=== PATIENT | male | born 1940 | race Caucasian/White ===

== ENCOUNTER → 2020-08-16 14:08 | Outpatient (BNVA) | payer MEDICARE, SELFPAY | PROVIDERS: Family Provider Family Medicine; PCP Family Medicine; Visit Provider Urology | DX: N40.1 Benign prostatic hyperplasia with lower urinary tract symptoms (principal); N39.41 Urge incontinence | CPT/HCPCS: 81003 ==

== ENCOUNTER 2021-02-08 22:51 | Observation (INO) | payer MEDICARE, SELFPAY ==
--- NOTE | 2021-02-08 23:00 | PM.HP ---
Providers/Chief Complaint Admitting Physician: Wei Mccann MD Primary Care Provider: Ravi Castro Chief Complaint: Sick Sinus Syndrome History of Present Illness Beau Peters is a 80 year old male with PMHx of Parkinson's disease, gastroesophageal reflux disease, bipolar disorder, dyslipidemia, anemia, bradycardia was evaluated in April of last year for similar complaints presented today from [facility] with chief complaint of dizziness. Patient is stating that for last few weeks he has been struggling with his gait, which he is describing as difficulty initiating gait and feeling dizzy with exertion such as walking on a steep road. He has not experienced any chest pain, shortness of breath, orthopnea, PND, diaphoresis however endorsing dry heaves. Because of worsening of his symptoms he decided to go to the [facility], where his CBC and BMP work-up was normal, lithium and valproic acid levels normal, TSH level normal, EKG she was showing sinus bradycardia he was sent to our facility for evaluation of symptomatic bradycardia. Patient does have bilateral lower extremity edema since last year he is not taking any Lasix. He follows up with Dr. Quach for his bradycardia, Holter monitoring did reveal sinus bradycardic rhythm, pacemaker was not considered last year. He follows up with neurologist at [facility]. At the time my evaluation he was eating sandwich no active complaints, heart rate fluctuated between 47-60 with good perfusion systolic blood pressure 119 mmHg, he was awake alert no active chest pain or shortness of breath, has resting tremors Documentation reviewed from [facility] Review of Systems Const: Reports: fatigue; Denies: fever(s) or change in weight Eyes: Denies: change in vision ENMT: Denies: throat pain Card: Reports: swelling of feet/ankles and dyspnea on exertion Resp: Denies: dyspnea GI: Reports: constipation; Denies: abdominal pain : Denies: flank pain Musc: Reports: extremity swelling, muscle cramps and muscle weakness Skin/Breast: Reports: erythema and lesions Neuro: Reports: difficulty walking Psych: Denies: anxiety Endo: Denies: polyuria Juan R/Lymph: Denies: easy bruising All/Imm: Denies: urticaria Medications/Allergies Home Medications Medication Instructions Recorded Confirmed Last Taken Type tamsulosin 0.4 mg capsule 0.4 mg PO BID #60 cap 03/13/20 02/08/21 02/08/21 08:00 Rx carbidopa 25 mg-levodopa 100 mg 2.5 tab PO QID tab 04/27/20 02/08/21 02/08/21 17:00 History tablet divalproex 250 mg tablet,delayed 250 mg PO TID 04/27/20 02/08/21 02/08/21 12:00 History release loteprednol etabonate 0.5 % eye 1 drop OPHTHALMIC (EYE) BID 04/27/20 02/08/21 02/08/21 08:00 History drops,suspension pravastatin 40 mg tablet 40 mg PO 1700 04/27/20 02/08/21 02/08/21 17:00 History lithium carbonate [Lithobid] 300 mg PO DAILY 02/08/21 02/08/21 02/08/21 08:00 History solifenacin [Vesicare] 5 mg PO DAILY 02/08/21 02/08/21 02/08/21 08:00 History Allergies Allergy/AdvReac Type Severity Reaction Status Date / Time No Known Allergies Allergy Verified 11/13/20 15:38 PFSH Acute PFSH: Medical History (Updated 02/08/21 @ 23:01 by Wei Mccann MD) BPH loc w urin obs/LUTS Erectile dysfunction GERD (gastroesophageal reflux disease) Melanoma Parkinson disease Surgical History (Updated 02/08/21 @ 23:01 by Wei Mccann MD) Hx of bilateral cataract extraction Hx of melanoma excision Hx of shoulder surgery Hx of tonsillectomy Hx of umbilical hernia repair Social History Smoking and tobacco status: former smoker Alcohol intake: current Alcohol intake frequency: other Adopted: Yes Lives independently: No Household members: spouse Marital status: Current occupational status: retired Physical Exam Narrative: EXAM NARRATIVE: Very pleasant and cooperative male who was sitting comfortably in his bed eating sandwich Saturating well on room air perfusing well with heart rate fluctuated between 45 to 60 bpm No active chest pain shortness of breath or abdominal pain S1, S2 sinus bradycardia no murmur appreciated Mild signs of congestive heart failure with bilateral lower extremity edema Multiple petechial rashes noted on lower extremities, bedbug bite versus mosquito No acute respiratory distress bilateral breath sounds without adventitious rhonchi or crackles Awake alert oriented x3 GCS 15 No neurological deficits Appropriate mood and affect Gait was not tested Resting tremors noted A&P Assessment and plan (1) Symptomatic sinus bradycardia: He is perfusing well with his bradycardia, normal TSH, no active signs of coronary ischemia, he is not on any negative chronotropic agents, [place] and valproic acid levels normal We will check magnesium level He follows up with Dr. Quach His symptoms are most likely related to Parkinson's in my assessment, kindly touch base with Dr. Quach if pacemaker would be indicated Overnight telemetry monitoring Status: Acute Additional A&P Information On and off phenomenon of Parkinson's I do believe he would benefit from increasing the dose of carbidopa levodopa, kindly touch base with neurologist at [facility] if she would agree with increasing the dosage His symptoms are consistent with Parkinson's gradual worsening No recent fall Cardiac diet Full code DVT prophylaxis Lovenox Attestations Medical Necessity Statement*: Anticipating discharge within 48 hours overnight monitoring needed to rule out symptomatic bradycardia, will need cardio evaluation before discharge Time Spent in Patient Care: 30mins Coding Level of Care Code Acute Grinding Room Inspector for Shannan Pickett Diagnoses Symptomatic sinus bradycardia R00.1
--- NOTE | 2021-02-08 23:11 | ECG_ITS ---
[facility] Test Date: 2021-02-08 Pat Name: Beau Peters Department: Room: 101 Gender: Male Photogrammetric Compilation Specialist: : 1940 Requested By: Wei Mccann Order Number: [id number] Sofía MD: Abbie Quach M.D. Measurements Intervals [place] Rate: 44 P: 40 MN: 165 QRS: -30 QRSD: 108 T: -11 QT: 454 QTc: 390 Interpretive Statements SINUS BRADYCARDIA WITH OCCASIONAL VENTRICULAR PREMATURE COMPLEXES LOW QRS VOLTAGE IN PRECORDIAL LEADS [QRS DEFLECTION < 1.0 mV IN CHEST LEADS] POSSIBLE ANTERIOR MYOCARDIAL INFARCTION [30 ms Q WAVE IN V3/V4, OR R < 0.2 mV IN V4], PROBABLY OLD No previous ECG available for comparison Electronically Signed On 02-10-2021 9:48:47 CDT by Abbie Quach M.D. [email or web address].[email or web address]/[id number]
[2021-02-08 23:33] VITALS: PULSE 45
[2021-02-08 23:37] VITALS: BMI 23.8
[2021-02-08] MEDS: enoxaparin 40 mg/0.4 mL Syringe SUBCUT (23:38)
--- NOTE | 2021-02-08 23:43 | PC.NURSE ---
Patient received from [facility] via ambulance as a direct admit. Received report from Sarah Benjamin RN. Patient has resting heart rate 30s to 40s. Patient initially went to hospital for BLE swelling. Noted to have bradycardia. Denies any dizziness, lightheadedness. Patient reports I did not realize my heart rate was so low. My heart doctor is Dr Quach. Admission completed as documented. Patient requesting Fixodent for his dentures. Informed Dr Mccann and received telephone for FIxodent PRN. RBVO
[2021-02-08 23:54] LABS: Troponin T (5th) Once 24 ng/L (0-15)
[2021-02-09] VITALS (8 sets, daily range): BP systolic 94–113; BP diastolic 56–76; PULSE 36–60; RESP 10–19; TEMP 36.4; O2SAT 98–99
[2021-02-09] MEDS: fixodent 39 gm Tube 1 APPLIC DENTAL (00:05)
[2021-02-09 04:37] LABS: Magnesium 1.9 mg/dL (1.7-2.3)
[2021-02-09] MEDS: tamsulosin 0.4 mg Capsule PO ×2 (08:59→17:22)
[2021-02-09] MEDS: divalproex DR 250 mg Tablet PO ×2 (08:59→15:24)
[2021-02-09] MEDS: carbidopa-levodopa 25-100mg Tablet 2.5 EACH PO ×3 (09:00→17:21)
--- NOTE | 2021-02-09 12:51 | PC.CHAP ---
Pastoral Care Encounter/Spiritual Assessment Type of Contact [] Declined machine featheredger and reducer visit [] Patient/Family/Request visit [] Outpatient visit [] Follow-up visit [] Physician referral [] Code/Alert [xx] Routine visit [] Staff referral [] Actively dying [] Patient sleeping [] Family support [] [] Out of room [] Palliative care [] [xx] Receiving care in room [] Pre-surgical visit [] Trauma [] Long length of stay [] ICU visit [] Other: Relational/Emotional Strength [] Patient feels connected with others/family/visitors/staff [] Distress [] Loneliness/isolation [] Abandonment Spirituality of Patient [] Person of Zoe [] Attends Congregational of their Zoe [] Believes in Prayer [] Reads Bible or Druze materials [] There are Spiritual issues to be addressed Piping Design Specialist Interventions [] Prayer [xx] Active listening [xx] Non-anxious presence [] Spiritual/emotional support [] Crisis/trauma care [] Spiritual counseling [] Bereavement support [] Provided bereavement packet [] Provided Bible/devotional materials [] Provided toy/stuffed animal, coloring book to patient or family member [] Provided Communion [] Anointing/[place] [] Salvation [xx] Completed spiritual assessment [] Other: Impact on Illness or Injury [] Angry [] Fearful [] Anxious [] Often cries [] Exhaustion [] Unable to work [] Unable to attend jainism [] Unable to walk/stand [] Unable to read [] Unable to drive [] Unable to eat/drink [] Unable to sleep [] Unable to be with family [] Patient intubated [] Other: Summary Patient did not want visit at that time. He has just finished PT and lunch has arrived. He is tired and hungry. Granddaughter(?) was with him in room. She did not want machine featheredger and reducer present. Time spent with patient 3 minutes
[2021-02-09 13:32] LABS: Lithium 1.7 mmol/L (0.6-1.2); Valproic Acid Level 73.4 ug/mL (50-100)
[2021-02-09 15:44] LABS: Lithium 0.4 mmol/L (0.6-1.2)
--- NOTE | 2021-02-09 16:04 | PM.DCS ---
Discharge Providers Date of Admission: 02/08/21 22:51 Date of Discharge: February 09, 2021 Attending Provider at Admission: Wei Mccann MD Attending Provider at Discharge: Colton Miranda Primary Care Provider: Ravi Castro Diagnoses at Discharge Discharge Diagnosis (1) Sinus bradycardia: Status: Acute (2) Parkinson disease: Status: Acute (3) Bipolar disorder: Status: Acute Reason for Visit Reason for Visit: Sick Sinus Syndrome Hospital Course Hospital Course Very pleasant 80-year-old gentleman with history of Parkinson's disease, bipolar disorder, sinus bradycardia, HLD, GERD, and a number of comorbidities was admitted due to more trouble walking, some episodes of intermittent fatigue. More trouble initiating movements. His Sinemet dose was due for reassessment by his neurologist in the last few days from what he tells me. On initial work-up at [facility] his lithium and Depakote levels were found normal. He was noted to be in sinus bradycardia, which was seen here in the hospital as well, and while sleeping heart rate went down to as low as 38. During the day heart rate stayed mostly in the 50s and 60s. He is not on maribell blocking agents. Balaton level was rechecked here and although he had not taken any initially was showing high at 1.7, however, value was rechecked and subsequently showing level of 0.4 which is more accurate and consistent with normal level at [facility] yesterday. As such his lithium dose will be continued unchanged. His Depakote level was recently increased by his psychiatrist, however, Depakote level appears to be repeatedly normal. We discussed sinus bradycardia with his supervisor travel information center. Seems like his last monitor was not since 2018, so we will set him up for cardiac monitoring for 2 weeks duration as per discussion, and he will be asked to follow-up with cardiology in office subsequently. Magnesium level was 1.9. TSH was normal. He remains free of chest pain or shortness of breath. We also discussed with his neurology office and his neurologist was contacted regarding worsening parkinsonism symptoms. They recommend cautiously increasing Sinemet dose to 3 tablets 4 times daily from 2.5 tablets he has been taking currently, however, cautiously due to prior symptoms of hallucinations. Discussed with him and his in case of experience of hallucinations or other adverse effects to decrease the dose back to the previous. He was assessed by PT and OT here in the hospital, and request is made for continuation of PT and OT with home health. Minute lower extremity edema noted, previously he was taking Lasix, however, for now we will not restart to avoid orthostasis and dehydration, but please revisit again in office. Orthostatic blood pressures were checked in the hospital and were normal at this time. He and his are agreeable with plan and follow-up arrangements. Physical Exam Const: COMMON NORMALS: no acute distress and patient oriented x3 GENERAL APPEARANCE: frail appearing OTHER: Pleasant, conversant. HENMT: COMMON NORMALS: oropharynx normal Neck/C-Spine: COMMON NORMALS: no JVD Resp: COMMON NORMALS: normal respiratory effort and clear to auscultation bilaterally AUSCULTATION: clear to auscultation bilaterally Cardio: COMMON NORMALS: no JVD, regular rhythm, S1 normal heart sound present, S2 normal heart sound present and No murmurs present (Cardio) RHYTHM: regular rhythm HEART SOUNDS: S1 normal heart sound present and S2 normal heart sound present GI: COMMON NORMALS: Normal to inspection, nondistended, normoactive bowel sounds present, Soft to palpation and non-tender PALPATION: Yes Soft to palpation Extremity: COMMON NORMALS: no joint enlargement and no pedal edema Neuro: COMMON NORMALS: patient oriented x3 and moves all extremities OTHER: Pill-rolling tremor. Skin: COMMON NORMALS: no rashes or lesions noted GENERAL SKIN EXAM: no rashes or lesions noted Discharge Data Data Completed and Pending: Labs from last 24 hours 02/09/21 02/09/21 02/09/21 14:55 14:30 02:59 Magnesium Troponin T Gen 5 n g/L Valproic Acid 73.4 Balaton 0.4 L Cancelled 1.7 H 02/09/21 02/08/21 02:59 23:22 Magnesium 1.9 Troponin T Gen 5 n g/L 24 H Valproic Acid Balaton Vitals: Last Vital Signs Pulse 60 02/09/21 14:17 Resp 10 L 02/09/21 13:15 BP 113/76 02/09/21 14:17 Pulse Ox 98 02/09/21 13:15 Discharge Plan Discharge Patient Disposition: Home Health Service Condition: Stable Prescriptions: Continued divalproex [Depakote] 250 mg tablet,delayed release (DR/EC) 250 mg PO TID RF: 0 loteprednol etabonate [Lotemax] 0.5 % drops,suspension 1 drop ophthalmic (eye) BID RF: 0 pravastatin 40 mg tablet 40 mg PO 1700 RF: 0 tamsulosin 0.4 mg capsule 0.4 mg PO BID Qty: 60 RF: 12 Vesicare 5 mg Tablet 5 mg PO DAILY RF: 0 lithium carbonate 150 mg Capsule 150 mg PO DIRECTED RF: 0 ondansetron HCl 4 mg Tablet 4 mg PO Q4H PRN (Reason: Nausea And Vomiting) RF: 0 pantoprazole 40 mg Tablet,Delayed Release (Dr/Ec) 40 mg PO BID RF: 0 hydroxyzine HCl 25 mg Tablet 25 mg PO Q6H PRN (Reason: Itching) RF: 0 Changed carbidopa-levodopa 25-100 mg tablet 3 tab PO QID Qty: 0 RF: 0 Discharge Orders: Discharge Order (Routine); Ordered 02/09/21 Ordered By: Colton Miranda Other Ambulatory Orders: [place] cardiac event monitor (Routine) Timeframe: 3 Days Facility: [facility] - Location: Cardiac Diagnostic Laboratory Ordered By: Colton Miranda Referrals: Madison Novoa [Other] - 2 weeks Ravi Castro [Primary Care Provider] - 4-7 days Carmelo Fountain MD [Referring] - 2 weeks (elevated lithium level, fatigue) Abbie Quach MD [Physician] - 2 weeks Discharge Diet: Cardiac Discharge Activity: Increase activity as tolerated, Use walker/crutches as instructed and As per PT/OT instructions Patient Instructions: Carbidopa/Levodopa (By mouth), Balaton (By mouth), Divalproex (By mouth), Parkinson's Disease (GEN), Bradycardia (GEN), Opioid Safety Activity Restrictions/Additional Instructions: Repeat lithium level was found not elevated. Please continue as previously. Continue to monitor heart rates at home. Please come on Friday to be set up for the heart monitor. Follow up with Dr Quach regarding the results. Please follow-up with your neurologist Dr. Novoa for reassessment of Parkinson's disease after increase in Sinemet dose to 3 tablets 4 times daily. Discharge Attestations Time Spent in Discharge Care*: greater than 30 min Quality Metrics Clinical Quality Measures During this hospital stay, did patient experience: None Coding Level of Care Code Acute Chg FW DC note Exam Comprehensive Diagnoses Sinus bradycardia R00.1 Parkinson disease G20 Bipolar disorder F31.9
[2021-02-09] MEDS: atorvastatin 40 mg Tablet 20 MG PO (17:21)
== END 2021-02-09 19:53 | disposition home health service (06) ==
PROVIDERS: Admitting Provider Internal Medicine; PCP Family Medicine; Visit Provider Internal Medicine
DX: R00.1 Bradycardia, unspecified (principal); G20 Parkinson's disease; F31.9 Bipolar disorder, unspecified; E78.5 Hyperlipidemia, unspecified; K21.9 Gastro-esophageal reflux disease without esophagitis; N40.1 Benign prostatic hyperplasia with lower urinary tract symptoms; N13.8 Other obstructive and reflux uropathy
CPT/HCPCS: 36415; 80164; 80178; 83735; 84484; 93005; 96372; 97110; 97116; 97162; 97166; G0378; G0379; J1650; J3475

== ENCOUNTER → 2021-03-14 07:00 | Day surgery (SDC) | payer MEDICARE, SELFPAY ==
[2021-03-14 10:57] LABS: Add Urine Microscopic? NO; Charge for UA Resulting for Rev
[2021-03-14 11:05] LABS: Bilirubin Urine Neg (Negative); Blood Urine Neg (Negative); Glucose Urine UA Norm (Normal); Ketones Urine Negative (Negative); Leukocyte Esterase Urine Negative (Negative); Nitrate Urine Negative (Negative); Protein Urine Neg (Negative); Specific Gravity, Urine 1.015 (1.005-1.030); Urine Appearance Clear (CLEAR); Urine Color Yellow (Yellow); Urobilinogen Urine Norm (Negative); pH Urine 6.5 (5-7)
[2021-03-14 11:08] LABS: Basophils # 0.1 10^3/uL (0.0-0.1); Basophils % 0.8 %; Eosinophils # 0.3 10^3/uL (0.0-0.8); Eosinophils % 4.7 %; Hematocrit 37.3 % (42.0-52.0); Hemoglobin 11.9 g/dL (11.7-16.6); Lymphocytes # 2.3 10^3/uL (0.8-4.8); Lymphocytes % 32.4 %; Mean Corpuscular HGB Conc 31.9 g/dL (30.0-36.0); Mean Corpuscular Hemoglobin 31.6 pg (28.0-34.0); Mean Corpuscular Volume 98.9 fL (80-94); Mean Platelet Volume 10.9 fL (7.4-10.4); Monocytes # 0.5 10^3/uL (0.2-0.9); Monocytes % 7.3 %; Neutrophils # 3.89 10^3/uL (1.8-7.7); Neutrophils % 54.4 %; Nucleated Red Blood Cells % 0 %; Platelet Count 214 10^3/cmm (130-400); Red Blood Count 3.77 10^6/uL (4.1-5.3); White Blood Count 7.2 10^3/uL (4.0-10.0)
[2021-03-14 11:12] VITALS: BMI 21.9
--- NOTE | 2021-03-14 11:23 | ECG_ITS ---
[facility] Test Date: 2021-03-14 Pat Name: Beau Peters Department: Room: Gender: Male Developmental Behavioral Physician: : 1940 Requested By: Avinash Gibbons Order Number: [id number] Sofía MD: Abbie Quach M.D. Measurements Intervals [place] Rate: 51 P: 45 VA: 162 QRS: -50 QRSD: 98 T: 36 QT: 408 QTc: 377 Interpretive Statements SINUS BRADYCARDIA LOW QRS VOLTAGE IN EXTREMITY LEADS [QRS DEFLECTION < 0.5 mV IN LIMB LEADS] LEFT ANTERIOR FASCICULAR BLOCK [QRS AXIS <= -45, QR IN I, RS IN II] Compared to ECG 02/08/2021 23:47:45 Left anterior fascicular block now present Ventricular premature complex(es) no longer present Myocardial infarct finding no longer present Electronically Signed On 03-15-2021 7:18:58 CDT by Abbie Quach M.D. [id number]
[2021-03-14 11:28] LABS: Anion Gap 12.4 (5-19); Blood Urea Nitrogen 26 mg/dL (8-23); Calcium 9.2 mg/dL (8.5-10.5); Carbon Dioxide 28 mmol/L (22-29); Chloride 103 mmol/L (98-107); Glucose 97 mg/dL (65-115); Osmolality Calculated 293 mOsm/kg (285-295); Potassium 4.4 mmol/L (3.5-5.1); Sodium 139 mmol/L (136-145)
--- NOTE | 2021-03-14 12:52 | P.ANESASSM_ITS ---
Pre-Anesthetic Assessment Pre-Anesthetic Assessment: Height/Weight: Height 1.78 m Weight 69.4 kg Preop Diagnosis: Sick sinus syndrome/paroxysmal atrial fibrillation Proposed Procedure: Operation Date: 03/21/21 07:00 Proposed Procedures p Pacemaker Insertion(Not Applicable) - Jossue Zarco MD Was Beta Jp taken within 24 hours: N/A Was Clonidine taken within 24 hours: N/A Social: Social History: No alcohol and No tobacco Exam: Pre-Anes Outpt Exam: alert, oriented x 3, clear to auscultation bilaterally and regular rate & rhythm Airway: Submandibular: WNL Cervical ROM: Other (limited extension) MP: 2 Dentition: False CV/HEM: CV/HEM: Afib and Arrythmia ([place]) GI: GI: GERD Metabolic: Metabolic: Hyperlipidemia Neuropsych: Comments: Parkinson's Anesthetic Plan: ASA status: 3 Anesthesia: MAC Risk of > 500 ml blood loss (7ml/kg in children): No PFSH Anesthesia PFSH: Medical History Bipolar disorder BPH loc w urin obs/LUTS Erectile dysfunction GERD (gastroesophageal reflux disease) Melanoma Parkinson disease Surgical History Hx of bilateral cataract extraction Hx of melanoma excision Hx of shoulder surgery Hx of tonsillectomy Hx of umbilical hernia repair Social History Smoking and tobacco status: former smoker Alcohol intake: current Alcohol intake frequency: other Adopted: Yes Lives independently: No Household members: spouse Marital status: Current occupational status: retired Data Anesthesia CBC & Chem 7: 03/14/21 11:00 03/14/21 11:00 Other Labs: Laboratory Results - last 48 hr 03/14/21 03/14/21 03/14/21 10:56 11:00 11:00 WBC 7.2 RBC 3.77 L Hgb 11.9 Hct 37.3 L MCV 98.9 H MCH 31.6 MCHC 31.9 RDW 14.0 Plt Count 214 MPV 10.9 H Neut % (Auto) 54.4 Lymph % (Auto) 32.4 Delta % (Auto) 7.3 Eos % (Auto) 4.7 Baso % (Auto) 0.8 Neut # (Auto) 3.89 Lymph # (Auto) 2.3 Delta # (Auto) 0.5 Eos # (Auto) 0.3 Baso # (Auto) 0.1 Nucleated RBC % (auto) 0 Nucleated RBCs # 0.0 Sodium 139 Potassium 4.4 Chloride 103 Carbon Dioxide 28 Anion Gap 12.4 BUN 26 H Creatinine 0.8 GFR Calculation Not Reportable Glucose 97 Calculated Osmolality 293 Calcium 9.2 Urine Color Yellow Urine Appearance Clear Urine pH 6.5 Ur Specific [place] 1.015 Urine Protein Neg Urine Glucose (UA) Norm Urine Ketones Negative Urine Blood Neg Urine Nitrate Negative Urine Bilirubin Neg Urine Urobilinogen Norm Ur Leukocyte Esterase Negative Cardiac Studies: Cardiac Event Monitor 02/13/21
== END ==
PROVIDERS: PCP Family Medicine; Visit Provider Thoracic Surgery (Cardiothoracic Vascular Surgery)
DX: Z01.818 Encounter for other preprocedural examination (principal); I48.91 Unspecified atrial fibrillation; E78.5 Hyperlipidemia, unspecified; G20 Parkinson's disease; N40.1 Benign prostatic hyperplasia with lower urinary tract symptoms; N13.8 Other obstructive and reflux uropathy; Z87.891 Personal history of nicotine dependence
CPT/HCPCS: 80048; 81003

== ENCOUNTER → 2021-03-14 11:23 | Day surgery (SDC) | payer MEDICARE, SELFPAY | PROVIDERS: PCP Family Medicine; Visit Provider Thoracic Surgery (Cardiothoracic Vascular Surgery) | DX: Z01.818 Encounter for other preprocedural examination (principal) | CPT/HCPCS: 93005 ==

== ENCOUNTER 2021-04-23 11:25 | Observation (INO) | payer MEDICARE, SELFPAY ==
[2021-04-18 12:01] VITALS: BMI 23.8
--- NOTE | 2021-04-18 12:49 | ANES.PREANE2 ---
Pre-Anesthetic Assessment Pre-Anesthetic Assessment: Height/Weight: Height 1.78 m Weight 75.296 kg Preop Diagnosis: Sick sinus syndrome/paroxysmal atrial fibrillation Proposed Procedure: Operation Date: 04/23/21 09:00 Proposed Procedures p Pacemaker Insertion(Not Applicable) - Jossue Zarco MD Familial anesthetic complications: None Social: Social History: No alcohol and No tobacco Exam: Pre-Anes Outpt Exam: alert, oriented x 3, clear to auscultation bilaterally and regular rate & rhythm Airway: Cervical ROM: WNL MP: 2 Dentition: False CV/HEM: CV/HEM: Afib and Arrythmia (bradycardia) GI: GI: GERD Metabolic: Metabolic: Hyperlipidemia Neuropsych: Comments: parkinson's Anesthetic Plan: ASA status: 4 Risk of > 500 ml blood loss (7ml/kg in children): No Other Pertinent Information: Patient had to be rescheduled d/t lack of covid test PFSH Anesthesia PFSH: Medical History Bipolar disorder BPH loc w urin obs/LUTS Erectile dysfunction GERD (gastroesophageal reflux disease) Melanoma Parkinson disease Surgical History Hx of bilateral cataract extraction Hx of melanoma excision Hx of shoulder surgery Hx of tonsillectomy Hx of umbilical hernia repair Social History Smoking and tobacco status: former smoker Alcohol intake: current Alcohol intake frequency: other Adopted: Yes Lives independently: No Household members: spouse Marital status: Current occupational status: retired Data Anesthesia Cardiac Studies: Cardiac Event Monitor 02/13/21
[2021-04-19 15:40] LABS: Coronavirus Test Green County Not Detected
[2021-04-23] VITALS (14 sets, daily range): BP systolic 111–147; BP diastolic 64–80; PULSE 58–96; RESP 16–21; TEMP 36.3–36.8; O2SAT 97–100
--- NOTE | 2021-04-23 | SCC_ITS ---
Procedure Done: Dual-chamber pacemaker and leads implantation 156.5 seconds of fluoroscopic guidance, for a cumulative dose of 32.70 mGy, was provided to Dr. Zraco by the radiology department. C-arm images of the chest were saved for the patient's permanent record. SAMRA
[2021-04-23] MEDS: sodium chloride 0.9% 1,000 ML 30 ML IV (07:50)
--- NOTE | 2021-04-23 08:27 | XRR_ITS ---
PROCEDURE INFORMATION: Exam: XR Chest Exam date and time: 04/23/2021 8:27 AM Age: 80 years old Clinical indication: Pre-operative exam; Cardiovascular screening and respiratory screening exam; Additional info: Pre op surgery TECHNIQUE: Imaging protocol: XR of the chest. Views: 1 view. COMPARISON: No relevant prior studies available. FINDINGS: Lungs: Lungs are well aerated without a focal area of consolidation. Pleural spaces: Unremarkable. No pleural effusion. No pneumothorax. Heart/Mediastinum: Moderate hiatal hernia Bones/joints: Unremarkable. XR/XR chest 1V portable [id number] IMPRESSION: Lungs are well aerated without a focal area of consolidation.
--- NOTE | 2021-04-23 08:29 | PM.HP ---
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 He is referred to our service for pacemaker implantation. He has been followed carefully by Dr. Quach from our heart care center. He is undergone prior Holter monitoring, reveals symptomatic bradycardia with heart rate in the 40s and 50s as well as short runs be tach up to 6 beats and short periods of atrial fibrillation. He has Parkinson's disease and is felt to have contraindication to anticoagulation due to a fall risk. Pacemaker implantation has been recommended by Dr. Quach to assist with management of the bradycardia and also to allow for more aggressive medical management of his other arrhythmias. Hospitalization February 08 with discharge on February 09 noted heart rate ranging from 35 to 145 bpm. Monitor report: a) 1 episode of 3-second long pause on 15 February at 4:12 AM. b) 6 beats long run of nonsustained ventricular tachycardia at 143 bpm on 16 February at 5:25 PM. c) 3 beats long run of nonsustained ventricular tachycardia bigeminal PVCs and couplet PVCs on 23 February at 3:15 AM. d) sustained atrial fibrillation 25 February at 3:31 AM with heart rate ranging from 80 to 145 bpm with average heart rate of 116 bpm. Longest episode of atrial fibrillation was 49 minutes on 25 February at 3:31 AM. Maximum heart rate recorded atrial fibrillation with rapid ventricular response at 145 bpm on 25 February at 4:09 AM. Minimum heart rate recorded sinus bradycardia at 35 bpm on 24 February at 9:44 AM. Review of Systems Const: Reports: fatigue; Denies: fever(s), chills, change in appetite, change in weight or night sweats Eyes: Denies: change in vision or blurry vision ENMT: Denies: odynophagia or hoarseness Card: Denies: chest pain, palpitations, irregular heart rhythm or edema Resp: Denies: dyspnea or productive cough GI: Denies: abdominal pain, nausea, vomiting, dysphagia, heartburn or change in bowel habits : Denies: difficulty urinating, dysuria, urinary frequency, urinary urgency or urinary hesitancy Musc: Denies: extremity pain or extremity swelling Skin/Breast: Denies: rash Neuro: Reports: weakness in extremities, lack of coordination and involuntary movements; Denies: headache(s), numbness in extremities or sensory changes Psych: Denies: anxiety, depression or change in appetite Endo: Denies: polyuria, polydipsia or cold intolerance Juan R/Lymph: Denies: easy bruising, easy bleeding, petechiae or enlarged lymph nodes Medications/Allergies Home Medications Medication Instructions Recorded Confirmed Last Taken Type divalproex 250 mg tablet,delayed 250 mg PO TID 04/27/20 04/23/21 04/22/21 21:30 History release loteprednol etabonate 0.5 % eye 1 drop OPHTHALMIC (EYE) BID 04/27/20 04/23/21 04/23/21 06:00 History drops,suspension pravastatin 40 mg tablet 40 mg PO 1700 04/27/20 04/23/21 04/22/21 15:30 History solifenacin [Vesicare] 5 mg PO DAILY 02/08/21 04/23/21 04/22/21 06:00 History carbidopa-levodopa 3 tab PO QID #0 tab 02/09/21 04/23/21 04/22/21 21:30 Rx hydroxyzine HCl 25 mg PO Q6H PRN 02/09/21 04/18/21 Unknown History lithium carbonate 150 mg PO DIRECTED 02/09/21 04/23/21 04/22/21 21:30 History ondansetron HCl 4 mg PO Q4H PRN 02/09/21 04/18/21 Unknown History pantoprazole 40 mg PO BID 02/09/21 04/23/21 04/22/21 History tamsulosin 0.4 mg PO BID 03/14/21 04/23/21 04/22/21 15:30 History Allergies Allergy/AdvReac Type Severity Reaction Status Date / Time No Known Allergies Allergy Verified 04/23/21 07:31 PFSH Acute PFSH: Medical History Bipolar disorder BPH loc w urin obs/LUTS Erectile dysfunction GERD (gastroesophageal reflux disease) Melanoma Parkinson disease Surgical History Hx of bilateral cataract extraction Hx of melanoma excision Hx of shoulder surgery Hx of tonsillectomy Hx of umbilical hernia repair Social History Smoking and tobacco status: former smoker Alcohol intake: current Alcohol intake frequency: other Adopted: Yes Lives independently: No Household members: spouse Marital status: Current occupational status: retired Vitals/I&O/Wt Last Vital Signs Temp 98.2 F 04/23/21 07:29 Pulse 58 L 04/23/21 07:29 Resp 17 04/23/21 07:29 BP 119/69 04/23/21 07:29 Pulse Ox 97 04/23/21 07:29 Physical Exam HENMT: COMMON NORMALS: normocephalic, atraumatic, hearing grossly normal bilaterally and external ears normal Neck/C-Spine: COMMON NORMALS: No carotid bruits; negative for full ROM GENERAL: Yes trachea midline, No lymphadenopathy and No tracheal deviation Chest: COMMONS NORMALS: normal inspection of the chest and normal palpation of entire chest wall Resp: COMMON NORMALS: normal respiratory effort, No retractions, No use of accessory muscles, clear to auscultation bilaterally and percussion normal EFFORT & INSPECTION: Yes able to speak in complete sentences and Yes symmetric chest movement Cardio: COMMON NORMALS: regular rate (Heart rate 60 upon presentation), regular rhythm and No murmurs present (Cardio) Extremity: COMMON NORMALS: no clubbing, cyanosis or edema and no calf tenderness A&P Assessment and plan (1) Atrial fibrillation: Pleasant 80-year-old gentleman with symptomatic sinus bradycardia as well as symptomatic periodic episodes of A. fib. To allow for continued medical management, Dr. Quach is recommended pacemaker implantation. Rationale for this was carefully discussed with Mr. Peters and his family. Details and risks of the procedure were carefully and frankly discussed. Risks reviewed include the possibility of , stroke, heart attack, major bleeding, infection, pneumonia, thorax requiring chest tube, organ failure, failure to benefit, prolonged hospital stay, dislodgment of the pacing leads requiring revision, pain after the procedure, need for further procedures, inability to complete the procedure, and possible need for long-term followup. All questions were answered. Appropriate consents have been provided for review and signature. Status: Acute Qualifiers: Atrial fibrillation type: paroxysmal Qualified Code(s): I48.0 - Paroxysmal atrial fibrillation Attestations Medical Necessity Statement*: Symptomatic bradycardia with episodic atrial fibrillation Time Spent in Patient Care: Greater than 35 minutes Coding Level of Care Code Acute Funeral Director/Embalmer/Owner for [facility] Fwd Diagnoses Atrial fibrillation I48.0 Atrial fibrillation type: paroxysmal
--- NOTE | 2021-04-23 08:34 | P.ANESUD_ITS ---
Pre-Anesthetic Update Pre-Anesthetic Assessment: Date of Surgery/Procedure: 04/23/21 Preop Jessica gnosis: Sick sinus syndrome/paroxysmal atrial fibrillation Proposed Procedure: Operation Date: 04/23/21 08:45 Proposed Procedures p Pacemaker Insertion(Not Applicable) - Jossue Zarco MD Any changes to Pre-Anesthetic Assessment?: No Last Intake: Intake Last Liquid Date 04/22/21 Last Liquid Time 23:00 Last Solid Date 04/22/21 Last Solid Time 15:30 Vitals: Temperature 98.2 F 04/23/21 07:29 Temperature Source Temporal Artery S can 04/23/21 07:29 Pulse Rate 58 L 04/23/21 07:29 Respiratory Rate 17 04/23/21 07:29 Blood Pressure 119/69 04/23/21 07:29 Blood Pressure Jessika n 85 04/23/21 07:29 Pulse Oximetry 97 04/23/21 07:29 Oxygen Delivery Me thod 04/23/21 07:39 Exam: Pre-Anes Outpt Exam: alert, oriented x 3 and clear to auscultation bilaterally Additional Exam Findings (including area of procedure): Gadiel Cardiac Studies: Cardiac Event Monitor 02/13/21
--- NOTE | 2021-04-23 09:32 | SC_ITS ---
WS: [id number] INTRAOPERATIVE PACEMAKER PLACEMENT TECHNIQUE: 2 Spot fluoroscopic images for intraoperative purposes. FLUOROSCOPY TIME: 156.5 seconds CLINICAL INFORMATION: Pacemaker implantation COMPARISON: None. FINDINGS: Intraoperative images obtained for pacemaker placement. No visualized pneumothorax. SC/C-arm FL for Pacemaker IMPRESSION: Images obtained for intraoperative purposes.
[2021-04-23] MEDS: lidocaine 1% INJ 20 mL INTRADERMA (10:21)
[2021-04-23] MEDS: ceFAZolin 1,000 mg SDV 1000 MG IRRIGATION (10:23)
--- NOTE | 2021-04-23 11:42 | PM.OP ---
Operative Report Date of procedure: April 23, 2021 Pre-op Diagnosis: Sick sinus syndrome/paroxysmal atrial fibrillation Post-op diagnosis: same Procedure Done: Dual-chamber pacemaker and leads implantation Implants: Right atrial and right ventricular leads and pacing generator Pathology: none sent Surgeon: Jossue Zarco Anesthesia: MAC and Local Complications: None Condition: stable Disposition: PACU Brief History: Mr. Peters is an 80-year-old gentleman with progressively symptomatic bradycardia as well as episodic symptomatic atrial fibrillation with rapid ventricular response. He has Parkinson's disease and is therefore felt to have a relative contraindication to anticoagulation. To allow for more aggressive management of his episodic atrial fibrillation, considering his bradycardia, dual-chamber pacemaker implantation has been recommended prior to proceeding with further medical therapy. Rationale was carefully discussed. Proper consents have been reviewed and signed. Procedure: Procedure: Mr. Peters was taken to the OR suite and placed in the supine position over a shoulder roll. He received conscious sedation with continuous anesthesia monitoring by. He has entire chest was sterilely prepped and draped. 1% lidocaine was infiltrated in the left subclavicular region. While in Trendelenburg position, utilizing modified seldinger technique, 2 guidewires were placed in the left subclavian vein. This was confirmed in position by fluoroscopy. Next, after infiltration with lidocaine, a subcutaneous pocket was created beginning from the exit point of the guidewire and extending laterally and inferiorly. Cautery was utilized to create the pocket just above the pectoralis musculature. Hemostasis was confirmed. An antibiotic-soaked sponge was placed in the wound. A dilator and tear-away sheath was placed over the first guidewire and advanced under fluoroscopy. Guidewire and dilator were removed. Next using a combination of curved and straight stylettes, the right ventricular lead was placed in position by fluoroscopy. The distal screw was extended. Interrogation was then performed confirming appropriate parameters. The tear-away sheath was then removed and the ventricular lead was sewn to the floor of the subcutaneous pocket. In a similar fashion dilator and tear-away sheath was placed over the 2nd guide wire and advanced under fluoroscopy. Guidewire and dilator were removed. Straight and curved stylettes were used to position the right atrial lead with fluoroscopy. Distal screw was extended. Interrogation was then performed. Tear-away sheath was then removed. Atrial lead was secured to the floor of the subcutaneous pocket. Pocket was irrigated with antibiotic solution and hemostasis again confirmed. Pacing generator was brought into the field, and after confirmation of hemostasis in the subcutaneous pocket, the leads were connected to the generator with appropriate capture. The entire system was interrogated by fluoroscopy. Leads and generator were secured in the pocket. Sponge and needle count was correct. The wound was then closed in 2 layers of 3-0 Vicryl suture. Skin was reapproximated in a subcuticular manner with 4-0 Monocryl suture. A pressure dressing was applied. The left arm was placed in a sling. The patient had equal breath sounds bilaterally. He was then transferred to the PACU, where chest x-ray is currently pending. I did direct care counselor with his at the completion of the procedure. Following are the specifics of this system: Right ventricular lead is 58 cm and model 5076. Serial number [id number] Right atrial lead is 52 cm and is model 5076. Serial number [id number]. Ventricular lead had sensing of 5.1 mV with an impedance of 642 ohms. Threshold was 0.5 V Atrial lead had sensing of 1.8 mV with an impedance of 577 ohms. Threshold was 0.75 V. [employer] generator: Model #[id number] Serial #[id number]
[2021-04-23] MEDS: carbidopa-levodopa 25-100mg Tablet 3 EACH PO ×3 (12:42→20:54)
--- NOTE | 2021-04-23 12:58 | ANE.PACU2 ---
Inpatient post-anesthesia follow up: Airway intact: Yes Vital signs: Temperature 97.7 F Pulse Rate 61 Respiratory Rate 18 Blood Pressure 126/73 Pulse Oximetry 97 Oxygen Delivery Me thod Room Air Oxygen Flow Rate 8 Fraction of Inspir ed Oxygen Hydration adequate: Yes Nausea and vomiting: No Pain level: 2 Mental status: Baseline
[2021-04-23] MEDS: divalproex DR 250 mg Tablet PO ×2 (14:45→20:55)
[2021-04-23] MEDS: tamsulosin 0.4 mg Capsule PO (17:10)
[2021-04-23] MEDS: pantoprazole DR 40 mg Tablet PO (17:11)
[2021-04-23] MEDS: ceFAZolin 1,000 MG in sodium chloride 0.9% (plus) 50 ML 100 MG IV (17:13)
[2021-04-23] MEDS: lithium carbonate 150 mg Capsule PO (20:55)
[2021-04-24 00:20] VITALS: BP 100/58; PULSE 60; RESP 18; TEMP 36.6; O2SAT 96
[2021-04-24 03:35] VITALS: BP 103/62; PULSE 60; RESP 18; TEMP 36.4; O2SAT 97
[2021-04-24] MEDS: ceFAZolin 1,000 MG in sodium chloride 0.9% (plus) 50 ML 100 MG IV ×2 (03:50→07:51)
--- NOTE | 2021-04-24 06:42 | PC.NURSE ---
Shift Note Frequent safety and comfort rounds continue. Orders and/or nursing care completed as indicated. Patient monitored for response to intervention and treatment(s). Education provided includes[pain management and ambulation with assistance. Patient and/or fundraising sale representative verbalized understanding. Pain well controlled. Will continue to monitor.
[2021-04-24 06:48] VITALS: PULSE 59
[2021-04-24 07:29] VITALS: BP 109/69; PULSE 84; RESP 17; TEMP 36.9; O2SAT 94
--- NOTE | 2021-04-24 07:38 | P.DS_ITS ---
Discharge Providers Date of Admission: 04/23/21 11:25 Date of Discharge: April 24, 2021 Attending Provider at Admission: Jossue Zarco MD Attending Provider at Discharge: Jossue Zarco MD Primary Care Provider: Ravi Castro Diagnoses at Discharge Discharge Diagnosis (1) Atrial fibrillation: Status: Acute Qualifiers: Atrial fibrillation type: paroxysmal Qualified Code(s): I48.0 - Paroxysmal atrial fibrillation Reason for Visit Reason for Visit: pacemaker instertion Hospital Course Hospital Course Mr. Peters is an 80-year-old gentleman who is now status post dual-chamber pacemaker implantation secondary to sick sinus syndrome and paroxysmal atrial fibrillation. He has a history of Parkinson's disease and therefore is felt to be contraindicated for anticoagulation secondary to fall risk. He was carefully evaluated on outpatient basis by our cardiology service and he was electively admitted yesterday for dual-chamber pacemaker implantation. Postoperatively, he has done well. Outer pressure dressing was removed. He does have moderate ecchymosis though no substantial fluid collection. Vital signs are stable. Only modest postoperative discomfort. He is eager for discharge to home. He will be discharged today in stable condition. Discharge Data Data Completed and Pending: Completed Studies During Hospitalization Category Date Time Status XR chest 1V [place] ble [id number] Routine Exams 04/23/21 08:27 Completed Vitals: Last Vital Signs Temp 98.5 F 04/24/21 07:29 Pulse 84 04/24/21 07:29 Resp 17 04/24/21 07:29 BP 109/69 04/24/21 07:29 Pulse Ox 94 04/24/21 07:29 Discharge Plan Discharge Patient Disposition: Home Condition: Stable Prescriptions: Continued divalproex [Depakote] 250 mg tablet,delayed release (DR/EC) 250 mg PO TID RF: 0 loteprednol etabonate [Lotemax] 0.5 % drops,suspension 1 drop ophthalmic (eye) BID RF: 0 pravastatin 40 mg tablet 40 mg PO 1700 RF: 0 tamsulosin 0.4 mg capsule 0.4 mg PO BID RF: 0 solifenacin [Vesicare] 5 mg Tablet 5 mg PO DAILY RF: 0 carbidopa-levodopa 25-100 mg tablet 3 tab PO QID Qty: 0 RF: 0 lithium carbonate 150 mg Capsule 150 mg PO DIRECTED RF: 0 ondansetron HCl 4 mg Tablet 4 mg PO Q4H PRN (Reason: Nausea And Vomiting) RF: 0 pantoprazole 40 mg Tablet,Delayed Release (Dr/Ec) 40 mg PO BID RF: 0 hydroxyzine HCl 25 mg Tablet 25 mg PO Q6H PRN (Reason: Itching) RF: 0 Discharge Orders: Discharge Order (Routine); Ordered 04/24/21 Ordered By: Jossue Zarco Referrals: Jossue Zarco MD [Physician] - 1 week Discharge Diet: Usual diet Discharge Activity: Limit activity as instructed Patient Instructions: Opioid Safety Activity Restrictions/Additional Instructions: May remove bandage in 2 days May begin daily showers in 2 days No swimming or tub baths x 2 weeks No ointments on incision Report drainage, redness, heat, increased pain, or swelling to clinic No heavy lifting with left arm x2 weeks and do not raise left hand above eye level for 1 week. Discharge Attestations Time Spent in Discharge Care*: less than 30 min Specific Discharge Activities: educating patient, discussing with case making machine operator/social workers/dc planners, documenting/other paperwork and evaluating patient/reviewing data Status at Discharge: Cognitive status at discharge: cognitively intact , Behavioral status at discharge: cooperative , Functional status at discharge: uses cane/walker Overall status at discharge: patient is back to baseline Quality Metrics Clinical Quality Measures During this hospital stay, did patient experience: None Coding Level of Care Code Acute [facility] DC note Diagnoses Atrial fibrillation I48.0 Atrial fibrillation type: paroxysmal
[2021-04-24] MEDS: divalproex DR 250 mg Tablet PO (07:52)
[2021-04-24] MEDS: carbidopa-levodopa 25-100mg Tablet 3 EACH PO (07:52)
[2021-04-24] MEDS: lithium carbonate 150 mg Capsule PO (07:52)
[2021-04-24] MEDS: tamsulosin 0.4 mg Capsule PO (07:52)
[2021-04-24] MEDS: pantoprazole DR 40 mg Tablet PO (07:52)
[2021-04-24 08:15] VITALS: BP 109/69; PULSE 84; RESP 17; TEMP 36.9; O2SAT 94
== END 2021-04-24 10:42 | disposition home or self-care (01) ==
LOC: MEDSURG 11:25
PROVIDERS: Admitting Provider Thoracic Surgery (Cardiothoracic Vascular Surgery); PCP Family Medicine; Visit Provider Thoracic Surgery (Cardiothoracic Vascular Surgery)
PROC: (CPT 33208; principal; 2021-04-23 08:45)
DX: I49.5 Sick sinus syndrome (principal); I48.0 Paroxysmal atrial fibrillation; G20 Parkinson's disease; N40.1 Benign prostatic hyperplasia with lower urinary tract symptoms; N13.8 Other obstructive and reflux uropathy; K21.9 Gastro-esophageal reflux disease without esophagitis; Z87.891 Personal history of nicotine dependence; E78.5 Hyperlipidemia, unspecified
CPT/HCPCS: 33208; 71045; 76000; 87635; C1779; C1786; C1898; G0378; J0690; J2250; J2370; J2704; J3010; J7030

== ENCOUNTER → 2021-09-05 14:54 | Outpatient (BNVA) | payer MEDICARE, SELFPAY | PROVIDERS: PCP Family Medicine; Visit Provider Urology | DX: N39.41 Urge incontinence (principal); N40.1 Benign prostatic hyperplasia with lower urinary tract symptoms | CPT/HCPCS: 81003 ==

== ENCOUNTER → 2022-06-25 10:31 | Outpatient (BNVA) | payer MEDICARE, SELFPAY | PROVIDERS: PCP Family Medicine; Visit Provider Internal Medicine Cardiovascular Disease | DX: I45.5 Other specified heart block (principal); I48.0 Paroxysmal atrial fibrillation; E78.5 Hyperlipidemia, unspecified; G20 Parkinson's disease; K21.9 Gastro-esophageal reflux disease without esophagitis; R60.9 Edema, unspecified; Z95.0 Presence of cardiac pacemaker; Z87.891 Personal history of nicotine dependence | CPT/HCPCS: 93280; 99214 ==

== ENCOUNTER 2022-07-05 11:13 | Outpatient (CLI) | payer MEDICARE, SELFPAY ==
[2022-07-05 13:14] LABS: Anion Gap 12.4 (5-19); Blood Urea Nitrogen 19 mg/dL (8-23); Calcium 9.6 mg/dL (8.5-10.5); Carbon Dioxide 28 mmol/L (22-29); Chloride 104 mmol/L (98-107); Digoxin 0.6 ng/mL (0.6-1.2); Glucose 94 mg/dL (65-115); Osmolality Calculated 292 mOsm/kg (285-295); Potassium 4.4 mmol/L (3.5-5.1); Sodium 140 mmol/L (136-145)
== END 2022-07-05 11:14 | disposition home or self-care (01) ==
LOC: LAB 11:15
PROVIDERS: PCP Family Medicine; Visit Provider Internal Medicine Cardiovascular Disease
DX: I48.0 Paroxysmal atrial fibrillation (principal); Z95.0 Presence of cardiac pacemaker
CPT/HCPCS: 80048; 80162; 93280

== ENCOUNTER → 2022-11-18 15:03 | Outpatient (BNVA) | payer MEDICARE, SELFPAY | PROVIDERS: PCP Family Medicine; Visit Provider Podiatrist Foot & Ankle Surgery | DX: M72.2 Plantar fascial fibromatosis (principal); M77.41 Metatarsalgia, right foot; M77.42 Metatarsalgia, left foot; L90.9 Atrophic disorder of skin, unspecified | CPT/HCPCS: 73630; 99203 ==

== ENCOUNTER → 2022-12-16 13:38 | Outpatient (BNVA) | payer MEDICARE, SELFPAY | PROVIDERS: PCP Family Medicine; Visit Provider Podiatrist Foot & Ankle Surgery | DX: M77.41 Metatarsalgia, right foot (principal); M77.42 Metatarsalgia, left foot; L90.9 Atrophic disorder of skin, unspecified | CPT/HCPCS: 99213 ==

== ENCOUNTER → 2023-01-08 10:53 | Outpatient (BNVA) | payer MEDICARE, SELFPAY | PROVIDERS: PCP Family Medicine; Visit Provider Specialist | DX: I48.0 Paroxysmal atrial fibrillation (principal); E78.5 Hyperlipidemia, unspecified; Z95.0 Presence of cardiac pacemaker; Z87.891 Personal history of nicotine dependence; Z79.82 Long term (current) use of aspirin; M77.41 Metatarsalgia, right foot; M77.42 Metatarsalgia, left foot; L90.9 Atrophic disorder of skin, unspecified | CPT/HCPCS: 99213; 99214 ==

== ENCOUNTER → 2023-02-18 15:04 | Outpatient (BNVA) | payer MEDICARE, SELFPAY | PROVIDERS: PCP Family Medicine; Visit Provider Podiatrist Foot & Ankle Surgery | DX: M77.41 Metatarsalgia, right foot (principal); M77.42 Metatarsalgia, left foot; L90.9 Atrophic disorder of skin, unspecified | CPT/HCPCS: 99213 ==

== ENCOUNTER → 2023-03-13 10:11 | Outpatient (BNVA) | payer MEDICARE, SELFPAY | PROVIDERS: PCP Family Medicine; Visit Provider Podiatrist Foot & Ankle Surgery | DX: M77.42 Metatarsalgia, left foot (principal); M77.41 Metatarsalgia, right foot; L90.9 Atrophic disorder of skin, unspecified | CPT/HCPCS: 99213 ==

== ENCOUNTER → 2023-04-08 09:10 | Outpatient (BNVA) | payer MEDICARE, SELFPAY | PROVIDERS: PCP Family Medicine; Visit Provider Podiatrist Foot & Ankle Surgery | DX: M77.41 Metatarsalgia, right foot (principal); M77.42 Metatarsalgia, left foot; L90.9 Atrophic disorder of skin, unspecified | CPT/HCPCS: 99213 ==

== ENCOUNTER → 2023-05-13 15:20 | Outpatient (BNVA) | payer MEDICARE, SELFPAY | PROVIDERS: PCP Family Medicine; Visit Provider Internal Medicine Cardiovascular Disease | DX: Z45.010 Encounter for checking and testing of cardiac pacemaker pulse generator [battery] (principal) | CPT/HCPCS: 93296 ==

== ENCOUNTER → 2023-07-09 13:55 | Outpatient (BNVA) | payer MEDICARE, SELFPAY | PROVIDERS: PCP Family Medicine; Visit Provider Internal Medicine Cardiovascular Disease | DX: Z95.0 Presence of cardiac pacemaker (principal); I48.0 Paroxysmal atrial fibrillation; Z79.82 Long term (current) use of aspirin; R60.9 Edema, unspecified; Z87.891 Personal history of nicotine dependence | CPT/HCPCS: 99214 ==

== ENCOUNTER → 2023-08-20 16:10 | Outpatient (BNVA) | payer MEDICARE, SELFPAY | PROVIDERS: PCP Family Medicine; Visit Provider Internal Medicine Cardiovascular Disease | DX: Z45.010 Encounter for checking and testing of cardiac pacemaker pulse generator [battery] (principal) | CPT/HCPCS: 93296 ==

== ENCOUNTER → 2024-01-14 14:06 | Outpatient (BNVA) | payer MEDICARE, SELFPAY | PROVIDERS: PCP Family Medicine; Visit Provider Internal Medicine Cardiovascular Disease | DX: R07.9 Chest pain, unspecified (principal); I48.0 Paroxysmal atrial fibrillation; R07.89 Other chest pain; Z95.0 Presence of cardiac pacemaker; G20.B2 Parkinson's disease with dyskinesia, with fluctuations; G47.33 Obstructive sleep apnea (adult) (pediatric); R97.8 Other abnormal tumor markers; R60.9 Edema, unspecified; Z87.891 Personal history of nicotine dependence; R94.31 Abnormal electrocardiogram [ECG] [EKG] | CPT/HCPCS: 93005; 99214 ==

== ENCOUNTER → 2024-07-27 14:02 | Outpatient (BNVA) | payer MEDICARE, SELFPAY | PROVIDERS: PCP Family Medicine; Visit Provider Internal Medicine Cardiovascular Disease | DX: I48.0 Paroxysmal atrial fibrillation (principal); I45.5 Other specified heart block; Z95.0 Presence of cardiac pacemaker; E78.2 Mixed hyperlipidemia; F31.0 Bipolar disorder, current episode hypomanic; G20.B2 Parkinson's disease with dyskinesia, with fluctuations; G47.33 Obstructive sleep apnea (adult) (pediatric); Z87.891 Personal history of nicotine dependence | CPT/HCPCS: 99214 ==

== ENCOUNTER → 2024-07-29 11:05 | Outpatient (BNVA) | payer MEDICARE, SELFPAY | PROVIDERS: PCP Family Medicine; Visit Provider Internal Medicine Cardiovascular Disease | DX: Z45.018 Encounter for adjustment and management of other part of cardiac pacemaker (principal) | CPT/HCPCS: 93296 ==

== ENCOUNTER → 2025-01-26 10:23 | Outpatient (BNVA) | payer MEDICARE, SELFPAY | PROVIDERS: PCP Family Medicine; Visit Provider Internal Medicine Cardiovascular Disease | DX: Z45.018 Encounter for adjustment and management of other part of cardiac pacemaker (principal) | CPT/HCPCS: 93296 ==

== ENCOUNTER 2025-05-13 15:32 | Outpatient (CLI) | payer MEDICARE, SELFPAY ==
[2025-05-13 16:57] LABS: Glucose Urine UA Negative (Normal); Nitrate Urine Positive (Negative); Specific Gravity, Urine 1.017 (1.005-1.030)
[2025-05-13 17:03] LABS: Add Urine Microscopic? YES; Universal Test for UA Present (0)
[2025-05-13 17:17] LABS: UA Slide Review UA Slide Review Perf
== END 2025-05-13 15:33 | disposition home or self-care (01) ==
LOC: LAB 15:39
PROVIDERS: PCP Family Medicine; Visit Provider Family Medicine
DX: N40.1 Benign prostatic hyperplasia with lower urinary tract symptoms (principal); R33.8 Other retention of urine; Z46.6 Encounter for fitting and adjustment of urinary device
CPT/HCPCS: 81001; 87077; 87086; 87186

== ENCOUNTER → 2025-06-02 14:12 | Outpatient (BNVA) | payer MEDICARE, SELFPAY | PROVIDERS: PCP Family Medicine; Visit Provider Internal Medicine Cardiovascular Disease | DX: I48.20 Chronic atrial fibrillation, unspecified (principal); Z79.82 Long term (current) use of aspirin; E78.5 Hyperlipidemia, unspecified; F31.9 Bipolar disorder, unspecified; G20.A1 Parkinson's disease without dyskinesia, without mention of fluctuations; G47.33 Obstructive sleep apnea (adult) (pediatric); Z99.89 Dependence on other enabling machines and devices; Z95.0 Presence of cardiac pacemaker; Z87.891 Personal history of nicotine dependence; R07.9 Chest pain, unspecified; R00.1 Bradycardia, unspecified; I48.0 Paroxysmal atrial fibrillation | CPT/HCPCS: 36415; 80048; 83735; 93005; 99214 ==

== ENCOUNTER → 2025-07-27 11:18 | Outpatient (BNVA) | payer MEDICARE, SELFPAY | PROVIDERS: PCP Family Medicine; Visit Provider Internal Medicine Cardiovascular Disease | DX: Z45.018 Encounter for adjustment and management of other part of cardiac pacemaker (principal) | CPT/HCPCS: 93296 ==